=== PATIENT | male | born 1955 | race Caucasian/White ===

== ENCOUNTER 2016-10-26 12:41 | Emergency (ER) | payer MEDICARE ==
[~2016-10-26] VITALS: Ht 182.9 cm; Wt 78.5 kg
[2016-10-26 18:55] VITALS: BP 123/82
[2016-10-26] MEDS ORDERED: LIDOCAINE W/ EPINEPHRINE 1% 20ML VIAL SC ONE (19:15)
[2016-10-26] MEDS ORDERED: LIDOCAINE 1% HCL (LOCAL ANESTH.) INJ 20ML MDV ONE (19:28)
[2016-10-26] MEDS ORDERED: LIDOCAINE 1% HCL (LOCAL ANESTH.) INJ 20ML MDV SC ONE (20:30)
== END 2016-10-26 20:41 | disposition home or self-care (01) ==
LOC: ER 12:41
DX: L02.211 Cutaneous abscess of abdominal wall (principal)
CPT/HCPCS: 10060; 99283; J2001; 96372